=== PATIENT | female | born 1950 | race Caucasian/White ===

== ENCOUNTER → 2021-10-13 08:48 | Outpatient (CLI) | payer MEDICARE, OTHER, SELFPAY ==
--- NOTE | 2021-10-13 | DI.US.S_ITS ---
PROCEDURE: US THYROID INDICATIONS: History of thyroid nodule TECHNIQUE: Real-time scanning was performed of the thyroid gland, with image documentation. COMPARISON: None. FINDINGS: Right: Thyroid lobe measures 3.1 x 1.3 x 0.9 cm, and is homogeneous in echotexture. Left: The atrophic left thyroid lobe measures 1.8 x 0.6 x 0.6 cm. It is homogenous in echotexture. Isthmus: 2 mm thick. Nodule number: 1 Location: Superior/lateral right thyroid lobe Size: 0.8 x 0.7 x 0.6 cm. Composition: Solid Echogenicity: Hypoechoic Shape: wider than tall. Margins: Irregular Echogenic foci: None Total points: 6 ACR TI-RADS category: TI-RADS 4 (moderately suspicious) Nodule number: 2 Location: Inferior/lateral right thyroid lobe Size: 1.3 x 1.1 x 1.0 cm. Composition: Solid Echogenicity: Hyperechoic Shape: wider than tall. Margins: Irregular Echogenic foci: Macrocalcifications Total points: 6 ACR TI-RADS category: TI-RADS 4 (moderately suspicious) IMPRESSION: 1. There are twoTI-RADS 4 (mildly suspicious) thyroid nodules identified in the right thyroid lobe measuring 0.8 cm and 1.3 cm respectively. These do not meet size criteria for FNA at this time. Imaging follow-up as recommended below. Atrophic left thyroid lobe. ACR TI-RADS definitions and recommendations: TI-RADS 1 (benign): 0 points. FNA not needed. TI-RADS 2 (not suspicious): 2 points. FNA not needed. TI-RADS 3 (mildly suspicious): 3 points. * FNA if 2.5 cm or larger, follow up if 1.5 cm or larger (at 1, 3, and 5 years). TI-RADS 4 (moderately suspicious): 4-6 points. * FNA if 1.5 cm or larger, follow up if 1 cm or larger (at 1, 2, 3, and 5 years). TI-RADS 5 (highly suspicious): 7 points or more. * FNA if 1 cm or larger, follow up if 0.5 cm or larger (every year for 5 years). Dictated by: Aquilino Blackwood M.D. on 10/13/2021 at 12:21 Approved by: Aquilino Blackwood M.D. on 10/13/2021 at 12:27
--- NOTE | 2021-10-13 | DI.MG.S_ITS ---
BILATERAL DIGITAL SCREENING MAMMOGRAM 3D/2D WITH CAD: 10/13/2021 CLINICAL: Routine screening. Family history of breast cancer. Comparison is made to exams dated: 11/25/2020 mammogram, 11/25/2020 ultrasound, 07/26/2020 mammogram, 07/01/2019 mammogram, 06/18/2018 mammogram, and 06/11/2017 mammogram - Outside facility. The tissue of both breasts is heterogeneously dense. This may lower the sensitivity of mammography. Current study was also evaluated with a Computer Aided Detection (CAD) system. No significant masses, calcifications, or other findings are seen in either breast. There has been no significant interval change. IMPRESSION: NEGATIVE There is no mammographic evidence of malignancy. A 1 year screening mammogram is recommended. Based on the Tyrer Cuzick model (a risk assessment model) the patient's lifetime risk is 7.6% and her 10 year risk is 4.5%. According to the ACR, ACS, and NCCN guidelines, an annual breast MRI exam along with mammogram is recommended if the patient's lifetime risk is 20% or greater. This exam was interpreted at Station ID: [id number]. NOTE: For mammograms, a report in lay terms will be sent to the patient. Approximately 15% of breast malignancies will not be visualized mammographically. In the management of a palpable breast mass, a negative mammogram must not discourage biopsy of a clinically suspicious lesion. Electronically Signed By: Tiara calderón/velasquez:10/13/2021 15:15:16 letter sent: Normal Exam ACR BI-RADS Category 1: Negative [id number]
== END ==
PROVIDERS: PCP Nurse Practitioner Family; Referring Provider Nurse Practitioner Family; Visit Provider Nurse Practitioner Family
DX: Z12.31 Encounter for screening mammogram for malignant neoplasm of breast (principal); Z80.3 Family history of malignant neoplasm of breast; E04.2 Nontoxic multinodular goiter; Z86.39 Personal history of other endocrine, nutritional and metabolic disease
CPT/HCPCS: 76536; 77063; 77067

== ENCOUNTER → 2021-12-06 11:39 | Outpatient (CLI) | payer MEDICARE, OTHER, SELFPAY ==
--- NOTE | 2021-12-06 11:41 | DI.MRI.S_ITS ---
PROCEDURE: MR KNEE RT WO CON COMPARISON: None. INDICATIONS: Pain in right knee FINDINGS: There is a complex tear involving the root of the posterior horn of the medial meniscus. There is also a horizontal tear involving the body of the patient's medial meniscus extending to the inferior joint surface. Lateral meniscus, PCL, and collateral ligaments appear within normal limits. There is mucinous degeneration of the ACL which is otherwise intact. There is a 2.5 centimeter septated ganglion cyst posterior to the PCL. The extensor mechanism appears within normal limits. There is moderate to severe chondromalacia involving the patellofemoral joint and articular surfaces of the medial compartment. Mild chondromalacia is noted involving the articular surface of the lateral compartment. There are some small subchondral cysts in the region of the tibial spines. There is a small knee joint effusion present. No significant Nelson cyst is identified. IMPRESSION: 1. Complex tear involving the root of the posterior horn of the patient's medial meniscus extending to superior and inferior joint surfaces. 2. Horizontal tear involving the body of the patient's medial meniscus extending to the inferior joint surface. 3. Mucinous degeneration of the ACL. 4. 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 5. Mild chondromalacia articular surfaces of the lateral compartment. 6. 2.5 centimeter septated ganglion cyst posterior to the PCL. 7. Small knee joint effusion. Dictated by: Bruce Copeland M.D. on 12/06/2021 at 13:39 Approved by: Bruce Copeland M.D. on 12/06/2021 at 13:46
== END ==
PROVIDERS: PCP Nurse Practitioner Family; Referring Provider Nurse Practitioner Family; Visit Provider Nurse Practitioner Family
DX: M25.561 Pain in right knee (principal); S83.241A Other tear of medial meniscus, current injury, right knee, initial encounter; M94.261 Chondromalacia, right knee; M67.461 Ganglion, right knee; M25.461 Effusion, right knee
CPT/HCPCS: 73721

== ENCOUNTER → 2022-01-04 12:20 | Outpatient (CLI) | payer MEDICARE, OTHER, SELFPAY ==
--- NOTE | 2022-01-04 12:21 | DI.MRI.S_ITS ---
PROCEDURE: MR LUMBAR SPINE WO CON INDICATIONS: Spinal Stenosis TECHNIQUE: Noncontrast sagittal T1 spin echo and T2 fast echo, sagittal STIR, and T2 fast spin echo through the lumbar spine. In cases with scoliosis, additional coronal T2 fast spin echo may be performed. COMPARISON: None. FINDINGS: Image quality: Excellent. Alignment and Curvature: There is mild grade 1 anterolisthesis seen at the L4-L5 level. No definite associated pars defects are seen. Bone Marrow: Marrow is of normal overall signal. Scattered foci are seen, which are hyperintense on T1-weighted and T2-weighted imaging, which are most consistent with benign vertebral body hemangiomas. No acute vertebral body compression fractures. Spinal Cord: Conus medullaris terminates at the L1 level. Visualized cord demonstrates normal signal and size. Paraspinous Soft Tissues: No paravertebral masses. There is a 4.7 cm simple appearing right renal cyst noted anteriorly. T11-T12: Moderate loss of disc height is seen anteriorly. No significant neural foraminal or central canal narrowing can be seen. T12-L1: Normal appearance. L1-L2: Normal appearance. L2-L3: Normal appearance. L3-L4: The disc height is well-preserved. Loss of disc signal is seen at this level. Mild generalized disc bulge is seen. Mild facet joint hypertrophy is seen. Moderate bilateral neural foraminal narrowing can be seen, right worse than left. Mild central canal narrowing is seen. L4-L5: Moderate loss of disc height is seen. Loss of disc signal is seen. Moderate generalized disc bulge is seen. There is a superimposed central disc protrusion. At least moderate facet hypertrophy is seen. Associated hypertrophy of the ligamentum flavum can be seen. There is moderate to severe bilateral neural foraminal narrowing seen, with an associated a degree of compression seen upon the exiting nerve roots. Moderate to severe central canal narrowing is also seen. L5-S1: The disc height and disk signal are well-preserved. Mild generalized disc bulge is seen. Mild facet joint hypertrophy is seen. Mild bilateral neural foraminal narrowing is seen. No significant central canal narrowing is seen. IMPRESSION: Lower lumbar spine degenerative changes are seen, which are worst at the L4-L5 level, where there is moderate to severe bilateral neural foraminal narrowing and moderate to severe central canal narrowing. At L4-L5, there is grade 1 anterolisthesis seen, without associated pars defects. Dictated by: Andrade Davis M.D. on 01/04/2022 at 15:40 Approved by: Andrade Davis M.D. on 01/04/2022 at 15:43
== END ==
PROVIDERS: PCP Nurse Practitioner Family; Referring Provider Physical Medicine & Rehabilitation; Visit Provider Physical Medicine & Rehabilitation
DX: M43.16 Spondylolisthesis, lumbar region (principal); M47.816 Spondylosis without myelopathy or radiculopathy, lumbar region; M48.061 Spinal stenosis, lumbar region without neurogenic claudication
CPT/HCPCS: 72148

== ENCOUNTER 2022-01-16 12:43 | Outpatient (CLI) | payer MEDICARE, OTHER, SELFPAY ==
[2022-01-16] VITALS (8 sets, daily range): BP systolic 117–134; BP diastolic 75–90; PULSE 64–75; RESP 12–20; TEMP 36.7; O2SAT 96–100
--- NOTE | 2022-01-16 12:44 | DI.RAD.S_ITS ---
PROCEDURE: PAIN L/S TRANSFORAM INJECT LAN COMPARISON: None. INDICATIONS: SPONDYLOSIS FINDINGS: Multiple images demonstrate performance of bilateral L4 nerve root blocks by the interventional pain physician. IMPRESSION: Fluoroscopic imaging utilized during bilateral L4 nerve root block procedure. Dictated by: Keven Jacob M.D. on 01/16/2022 at 20:53 Approved by: Keven Jacob M.D. on 01/16/2022 at 20:54
[2022-01-16] MEDS: MIDAZOLAM 2 MG/2 ML VIAL IV (14:14)
[2022-01-16] MEDS: IOPAMIDOL 15 ML VIAL 3 ML INJ (14:18)
[2022-01-16] MEDS: BETAMETHASONE 30 MG/5 ML MDV 12 MG INJ (14:18)
[2022-01-16] MEDS: BUPIVACAINE 0.25% (PF) VIAL 2 ML INJ (14:18)
[2022-01-16] MEDS: DEXAMETHASONE 10 MG/ML VIAL 20 MG INJ (14:19)
--- NOTE | 2022-01-16 14:29 | PM.PROC.IR.1 ---
Date/Time/Diagnoses Date of procedure: 01/16/22 Time of procedure: 14:30 Pre-procedure diagnosis: 1. FORAMINAL STENOSIS WITH LE SYMPTOMS Procedure Notes Procedure: 1. FLUOROSCOPICALLY GUIDED CONTRAST CONTROLLED TRANSFORAMINAL EPIDURAL STEROID INJECTION - BILATERAL L4/5 TFESI Indications: Nanda is referred by PERRY Sahu for treatment of Foraminal Stenosis with bilateral LE Symptoms Physician: Abdiel Villareal Total Fluoroscopy time (seconds): 12 Total sedation minutes: 14 Complications: none Procedure in detail & Post-procedure care: FINDINGS Foraminal Nerve Root Compression secondary to disc disease and facet hypertrophy DESCRIPTION OF PROCEDURE Following review of allergy and review of potential side effects and complications, including, but not necessarily limited to, infection, allergic reaction, local tissue breakdown, stroke, temporary or permanent nerve injury, paralysis, and possible , the patient indicated that the patient understood and agreed to proceed. An informed consent document was signed by the patient, witnessed by a nurse, and placed in the patient's chart. Additionally, other treatment options including medications, modalities, and physical therapy were reviewed with the patient. After review of previous anaesthesic history and IV conscious sedation the patient was deemed safe to proceed with today?s procedure with IV conscious sedation as ASA class II designation. Safety time-out was performed to confirm patient ID, procedure to be performed and site of procedure. IV sedation was accomplished with a combination of 2mg of Versed was administered by the RN after DO order, titrated to patient comfort during the course of the procedure while the patient remained responsive to all verbal commands In the prone position following sterile prep and drape of the lumbar region, the right L4/5 posterior neuroforamen was identified fluoroscopically. The skin was anesthetized via a 25-gauge 1.5-inch needle with 1% lidocaine solution. At this point, a 25-gauge 3.5-inch spinal needle was atraumatically introduced and advanced under fluoroscopic guidance through the posterior right L4/5 neuroforamen to approximately the anterior aspect of the canal. Depth was confirmed on lateral view. Following negative aspiration, injection of approximately 1.5cc of Isovue 200 under live fluoroscopy in the AP view confirmed excellent flow along the nerve root, into the epidural space without vascular or intrathecal uptake observed Radiological data, including multiple fluoroscopic views of the lumbosacral spine, reveal a spinal needle at the right L4/5 posterior neuroforamen. Subsequent views show flow of contrast material flowing superiorly and inferiorly along the nerve root confirming epidural flow. Subsequently, a test dose of 1.5cc of 1% lidocaine solution was administered and patient was observed for two minutes for signs or symptoms of complications, including abdominal pain, shortness of breath, bilateral upper or lower extremity weakness, nausea and vomiting, prior to steroid injection. At this point, a total of 3cc or 20mg of dexamethasone and 6mg betamethasone was injected without incident. Attention was then refocused to the left L4/5 level where the identical procedure was replicated. The procedure tolerated the procedure well without signs or symptoms of complications prior to transfer to the recovery area continued monitoring without incident. The patient was then transferred to the recovery area where they were observed for an appropriate time after the injection. The patient reported a VAS score of 7 prior to the procedure and a post-procedure VAS of 0. POST OP INSTRUCTIONS The patient was provided a Pain Log to continue to record their response to the target-specific procedure prior to follow-up visit with their referring physician. Additionally, specific post-injection care instructions and a contact number to our office were provided if concerns arise regarding possible complications associated with the procedure are suspected.
--- NOTE | 2022-01-16 14:54 | PC.NURSE ---
Patient had some left leg weakness when stood up from the wheelchair after the procedure. Checked again at 1444, some weakness still persisted. Kept patient for 10 more minutes and rechecked at 1454. Her weakness was much improved. The patient and I both felt she was able to leave. Dr. Villareal notified.
== END 2022-01-16 14:54 | disposition home or self-care (01) ==
LOC: RAD 12:43
PROVIDERS: PCP Nurse Practitioner Family; Referring Provider Physical Medicine & Rehabilitation; Visit Provider Physical Medicine & Rehabilitation
DX: M48.061 Spinal stenosis, lumbar region without neurogenic claudication (principal); M51.16 Intervertebral disc disorders with radiculopathy, lumbar region
CPT/HCPCS: 64483; 99152; J0702; J1100; J2250; J3490

== ENCOUNTER → 2022-04-25 09:22 | Outpatient (CLI) | payer MEDICARE, OTHER, SELFPAY ==
--- NOTE | 2022-04-25 | DI.RAD.S_ITS ---
PROCEDURE: XR DEXA AXIAL SKELETON INDICATIONS: Age-related osteoporosis COMPARISON: None. FINDINGS: This blank DEXA report has been sent in error by the PACS system. The correct and complete report will be forthcoming in 1-2 days. Thank you for your patience and understanding. Dictated by: Drew Fernández M.D. on 04/25/2022 at 11:38 Approved by: Drew Fernández M.D. on 04/25/2022 at 11:38
== END ==
PROVIDERS: PCP Family Medicine; Referring Provider Family Medicine; Visit Provider Family Medicine
DX: Z13.820 Encounter for screening for osteoporosis (principal); M81.0 Age-related osteoporosis without current pathological fracture; Z78.0 Asymptomatic menopausal state
CPT/HCPCS: 77080

== ENCOUNTER 2022-04-25 11:02 | Day surgery (SDC) | payer MEDICARE, OTHER, SELFPAY ==
[2022-04-19 08:39] VITALS: BMI 20.5
[2022-04-25] VITALS (9 sets, daily range): BP systolic 93–145; BP diastolic 60–82; PULSE 69–88; RESP 11–21; TEMP 36.1–36.9; O2SAT 95–98; BMI 19.7; BMI 22.1
--- NOTE | 2022-04-25 06:00 | DI.RAD.S_ITS ---
PROCEDURE: XR KNEE RT 1TO2V INDICATIONS: R TKA TECHNIQUE: Two views of the knee acquired. COMPARISON: [facility], CR, XR KNEE STANDING BILATERAL, 01/04/2022, 8:51. FINDINGS: Bones: Patient is status post knee joint arthroplasty. Hardware components are in expected positions. Visualized bony structures are intact. Soft tissues: Overlying postoperative changes are noted. IMPRESSION: Status post right total knee arthroplasty with expected postoperative findings. Approved by: Ori Donohue M.D. on 04/25/2022 at 15:11
[2022-04-25] MEDS: ACETAMINOPHEN 325 MG TABLET 975 MG PO (11:42)
[2022-04-25] MEDS: MELOXICAM 7.5 MG TABLET 15 MG PO (11:46)
[2022-04-25] MEDS: LACTATED RINGERS 1,000 ML 42 ML IV (12:07)
[2022-04-25] MEDS: MELOXICAM 7.5 MG TABLET PO (12:12)
--- NOTE | 2022-04-25 12:19 | PM.PREOP ---
Pre-operative Note Interval Note History & Physical reviewed/Exam performed by Physician: Yes Changes to H&P: No
[2022-04-25] MEDS: CEFAZOLIN 2 GM/100 ML PREMIX 100 ML IV ×2 (12:50→21:16)
[2022-04-25] MEDS: TRANEXAMIC ACID 1,000 MG VIAL 1000 MG INJ ×2 (13:02→13:58)
--- NOTE | 2022-04-25 13:08 | SUR.OPER ---
Supine on padded OR bed, head on pillow, arms secured on padded arm boards at <90 degrees abduction, legs uncrossed, safety belt at abdomen, tape over blanket over lower left leg. Alavardo padded and holding left leg, secured with coban.
[2022-04-25] MEDS: BUPIVACAINE LIPOSOME 266 MG/20 ML VIAL INJ (13:21)
[2022-04-25] MEDS: MORPHINE 4 MG/ML INJ INJ (13:21)
[2022-04-25] MEDS: BUPIVACAINE 0.5% W/ EPI (PF) 30 ML VIAL INJ (13:23)
--- NOTE | 2022-04-25 14:21 | PM.OP.1 ---
Operative Date/Time/Diagnoses Date of procedure: 04/25/22 Time of procedure: 14:21 Pre-op diagnosis: Right knee osteoarthritis Post-op diagnosis: same Procedure & Clinicians Procedure: Right total knee replacement Same procedure as scheduled: Yes Indications: The patient has had progressively worsening right knee pain with radiographic changes consistent with arthritis. Non-operative management has failed and the patient has requested total knee replacement. The risks, benefits and alternatives to surgery were discussed with the patient prior to proceeding. Risks discussed included, but were not limited to, failure to relieve pain, stiffness, infection, nerve damage, deep venous thrombosis, pulmonary embolism, stroke, coma, heart attack, permanent paralysis and , as well as the potential need for eventual revision of the prosthetic. Surgeon: José Toney Substance Abuse Clinician: Navneet Phipps Click Yes if Unassisted: No Anesthesia Type: General, Spinal and Local Operative Notes Findings: Severe patellofemoral and moderate medial osteoarthritis. Closure Type: primary Specimen(s): none sent Prosthetic devices, grafts, tissues, transplants, or devices: Implants used in this procedure were manufactured by the [employer] and [employer] and included the BCS II Journey total knee replacement with a size 5 right Oxinium femoral component, a size 4 right non porous tibial base plate, a 9 mm cross-linked polyethylene tibial insert, and a 32 mm oval Cherie II patella. Applied: implant(s) Estimated Blood Loss (mL): 25 Blood products transfused: none Tourniquet time (min): 51 Procedure in detail: The patient was seen in the pre-operative area, where the patient identified the right knee as the operative site and this was marked with my initials. The patient received pre-operative antibiotics, and was taken to the operating room and placed on the operative table in the supine position. After satisfactory anesthesia, a radio time buyer out was performed. The right leg was encircled with a tourniquet about the proximal thigh, and the leg was prepared from the toes to the tourniquet with ChloroPrep in the usual fashion and draped through sterile drapes. The leg was elevated and exsanguinated with Eschmark bandage and the tourniquet inflated to 250 mmHg pressure. The knee was approached through an approximately 18 cm incision centered over the patella and carried into the knee through a medial parapatellar arthrotomy. The anterior osteophytes and soft tissues were removed. The rotational landmarks of Annemarie's line and the transepicondylar axis were marked on the femur with electrocautery, and intramedullary guide holes for the femur and tibia were created. The distal femoral cut was made in 6 degrees of valgus using the intramedullary guide at the primary cut setting. The proximal tibial cut was then made using the intramedullary guide, taking 9 mm of bone off the less involved side. The extension gap was checked and the rotation of the femoral component confirmed with the gap balancing system. The anterior, posterior and chamfer cuts were then made. The posterior osteophytes and soft tissues were then removed. The posterior capsule was injected with part of a mixture of 60 ml 0.25% Marcaine mixed with 20 ml Exparel and 4 mg of morphine for post-operative pain control. The remainder of this mixture was injected into the capsule and subcutaneous tissues during cement curing. The tibia was prepared with the rotation set by an extra medullary guide. Trial tibial and femoral components were then placed and the intercondylar notch cut through the femoral trial. Range of motion was 0-145 degrees, with good stability throughout the range. The patella was then cut to accommodate the patellar prosthetic. There was no need for a lateral release. The trials were then removed, and the femoral hole plugged with a bone plug. The bone was prepared with pulsatile lavage, and dried with a sponge. Cement was applied and the final prosthetics placed. Excess cement was removed during and after cement curing. After confirming there was no extruded cement posteriorly, the final tibial insert was placed. The knee was copiously irrigated and the tourniquet deflated. Hemostasis was obtained. The capsule was closed with interrupted # 2 polyester suture. The subcutaneous layer was closed with 3-0 Vicryl, and the skin with a running 3-0 V-Lock suture and Dermabond. An Aquacel Ag dressing was applied and the patient was taken to recovery having tolerated the procedure well. The services of a skilled neurosurgical nurse practitioner were required during this case to provide exposure, positioning, and retraction to protect vital structures. Without the services of Mr. Phipps, the surgery could not have been performed in a safe, expedient fashion. Complications: none Post-operative Condition: stable Disposition: PACU Plan for aftercare: The patient will be maintained on a standard total knee replacement protocol with weight bearing as tolerated. The patient will receive aspirin and sequential compression devices for DVT prophylaxis. The patient will be discharged home when safe for the home environment.
[2022-04-25] MEDS: LACTATED RINGERS 1,000 ML 100 ML IV (15:36)
[2022-04-25] MEDS: IBUPROFEN 400 MG TABLET PO ×2 (16:35→21:15)
[2022-04-25] MEDS: ACETAMINOPHEN 325 MG TABLET 650 MG PO (17:20)
[2022-04-25] MEDS: OXYCODONE IR 5 MG TABLET PO (18:26)
[2022-04-25] MEDS: FAMOTIDINE 20 MG TABLET 40 MG PO (21:15)
[2022-04-25] MEDS: ASPIRIN EC 81 MG TABLET PO (21:15)
[2022-04-25] MEDS: DOCUSATE 100 MG CAPSULE PO (21:15)
[2022-04-26] MEDS: MELATONIN 3 MG TABLET PO (00:01)
[2022-04-26] MEDS: ACETAMINOPHEN 325 MG TABLET 650 MG PO ×3 (00:01→11:08)
[2022-04-26 00:20] VITALS: BP 118/71; PULSE 70; RESP 18; TEMP 36.7; O2SAT 95
[2022-04-26] MEDS: IBUPROFEN 400 MG TABLET PO ×3 (02:33→12:00)
[2022-04-26] MEDS: LACTATED RINGERS 1,000 ML 100 ML IV (02:47)
[2022-04-26] MEDS: CEFAZOLIN 2 GM/100 ML PREMIX 100 ML IV (05:02)
[2022-04-26] MEDS: LEVOTHYROXINE 88 MCG TABLET PO (05:07)
[2022-04-26 05:09] VITALS: BP 104/60; PULSE 66; RESP 18; TEMP 36.6; O2SAT 95
[2022-04-26 06:26] LABS: Hematocrit 35.6 % (36-46); Hemoglobin 12.2 g/dL (12.0-16.0)
[2022-04-26] MEDS: SODIUM CHLORIDE 0.9% FLUSH 10 ML IV ×2 (06:29→09:12)
[2022-04-26 07:50] VITALS: BP 107/67; PULSE 76; RESP 16; TEMP 36.8; O2SAT 98
--- NOTE | 2022-04-26 07:50 | P.DS_ITS ---
History of Present Illness History of Present Illness Date Patient Seen: 04/26/22 Time Patient Seen: 07:50 Chief complaint: right tka Narrative: Patient is complaining of [id number] right knee pain this morning. Her main complaint is that her right foot is feeling somewhat numb and she has difficulty with dorsiflexion. She feels this is resolving since last night. This is a new experienced since surgery. She also notes she had mild lightheadedness with getting up to the commode, this has resolved. Overall she is doing well and would like to be discharged home today. Discharge Providers Provider Discharge Date: 04/26/22 Primary care physician: Geovanna Mendoza MD Consults: 04/25/22 14:52 Consult to Discharge Planning Routine Comment: Consult to Physical Therapy Evaluate & Treat Comment: Physician Instructions: postop TKA protocol Discharge provider: Dora Holly PA-C Summary Hospital Course Discharge Diagnosis: -right knee osteoarthritis Hospital Course: Operative Date/Time/Diagnoses Date of procedure: 04/25/22 Time of procedure: 14:21 Procedure & Clinicians Procedure: Right total knee replacement Same procedure as scheduled: Yes Indications: The patient has had progressively worsening right knee pain with radiographic changes consistent with arthritis. Non-operative management has failed and the patient has requested total knee replacement. The risks, benefits and alternatives to surgery were discussed with the patient prior to proceeding. Risks discussed included, but were not limited to, failure to relieve pain, stiffness, infection, nerve damage, deep venous thrombosis, pulmonary embolism, stroke, coma, heart attack, permanent paralysis and , as well as the potential need for eventual revision of the prosthetic. Surgeon: José Toney Bodily Injury Adjuster: Navneet Phipps Click Yes if Unassisted: No Anesthesia Type: General, Spinal and Local Operative Notes Findings: Severe patellofemoral and moderate medial osteoarthritis. Closure Type: primary Specimen(s): none sent Prosthetic devices, grafts, tissues, transplants, or devices: Implants used in this procedure were manufactured by the [employer] and included the BCS II Journey total knee replacement with a size 5 right Oxinium femoral component, a size 4 right non porous tibial base plate, a 9 mm cross-linked polyethylene tibial insert, and a 32 mm oval Cherie II patella. Applied: implant(s) Estimated Blood Loss (mL): 25 Blood products transfused: none Tourniquet time (min): 51 Status at Discharge Cognitive/behavioral status at discharge: at baseline, oriented Functional status at discharge: uses cane/walker Overall status at discharge: patient is progressing back to baseline Exam Vital Signs (past 8 hours): - 04/26/22 00:20 04/26/22 05:09 Temperature 98.0 F 97.8 F Pulse Rate 70 66 Respiratory Rate 18 18 Blood Pressure 118/71 104/60 Pulse Oximetry 95 95 Oxygen Flow Rate 0 0 Oxygen Delivery Method Room Air Oxygen Flow Rate 0 Narrative Exam Narrative: Pleasant 72-year-old female, resting comfortably in bed, no acute distress. Right knee dressings are clean, dry, intact. Sensation is mildly decreased over the 5th metatarsal, right worse than left. EHL strength and dorsiflexion are 4/ 5, plantar flexion is 5/5. Bilateral calves are soft and nontender to palpation. Objective Labs 04/26/22 05:36 Labs: Laboratory Results - last 24 hr 04/26/22 05:36 Hgb 12.2 Hct 35.6 L PFSH Medical History ACL (anterior cruciate ligament) tear Arthritis Bilateral lumbar radiculopathy GERD (gastroesophageal reflux disease) Mary Lou's disease HLD (hyperlipidemia) Hypothyroidism IBS (irritable bowel syndrome) Osteoarthritis Osteoporosis Right knee DJD Sciatica Scoliosis Spinal stenosis Spondylolisthesis at L4-L5 level Surgical History Hx of blepharoplasty Hx of tonsillectomy S/P Mohs surgery for basal cell carcinoma Family History Father Diabetes mellitus Hypertension Cancer Mother Hypertension Hyperlipidemia Stroke Osteoporosis Sister Cancer Hyperlipidemia Arthritis Social History household members: spouse Smoking Status: Never smoker alcohol intake: current Discharge Assessment & Plan Assessment and Plan Assessment: -stable status post right total knee arthroplasty -mild right lower extremity dyskinesias, improving Plan of Treatment: -mobilize with physical therapy. Weightbearing as tolerated with front wheel walker -continue with multimodal pain management Aspirin 81 mg b.i.d. x6 weeks for DVT prophylaxis -continue to monitor right lower extremity mild weakness and dyskinesias -patient already has prescriptions and [id number] medications at home -DC home today once cleared by PT Patient will need a priority [place] pass for [place]. Discharge Plan Discharge Plan Patient Disposition: Home Discharge orders & Medications Discharge Orders: Discharge (Order); Ordered 04/26/22 Ordered By: Dora Holly Prescriptions: New oxycodone 5 mg Tablet 5 mg PO Q3HR PRN (Reason: Pain, Moderate (4-6)) Qty: 40 0RF aspirin 81 mg Tablet,Delayed Release (Dr/Ec) 81 mg PO BID 42 Days Qty: 84 0RF Rx Instructions: Prevent blood clots ibuprofen 400 mg Tablet 400 mg PO Q4HR MDD Max 2400 mg per day PRN (Reason: Pain/inflammation) Qty: 90 0RF acetaminophen 500 mg capsule 500 mg PO Q4H MDD Max 3000 mg per day PRN (Reason: fever or pain) Qty: 90 0RF docusate sodium 100 mg Capsule 100 mg PO BID PRN (Reason: constipation) Qty: 20 0RF Continued famotidine 40 mg Tablet 40 mg PO BEDTIME hyoscyamine sulfate 0.125 mg Tablet 0.125 mg PO Q4H PRN (Reason: IBS) melatonin 3 mg Capsule 3 mg PO BEDTIME PRN (Reason: Sleep) levothyroxine 88 mcg tablet 88 mcg PO DAILY estradiol 0.01 % (0.1 mg/gram) cream 1 appful vaginal WEEKLY rosuvastatin 20 mg tablet 20 mg PO DAILY Prolia 60 mg/mL syringe 60 mg SUBCUT [id number] Alive Calcium-Vitamin D3 260 mg calcium- 25 mcg-50 mg tablet,chewable 1 tab PO DAILY Probiotic 15 billion cell capsule, sprinkle 1 cap PO DAILY Rx Instructions: do not crush/chew/cut; swallow whole OR may open and sprinkle in cold drink/food multivitamin Tablet 1 tab PO DAILY gabapentin 300 mg capsule 300 mg PO .COMPLEX Qty: 90 2RF Rx Instructions: 1-2 PO Tid to begin at HS and titrate to pain relief Discontinued ibuprofen 200 mg Tablet 200 mg PO Q6H PRN (Reason: Pain) Follow up/Referrals: Geovanna Mendoza MD [Primary Care Provider] - José Toney MD [Physician] - As previously scheduled (Follow up w/ Navneet Phipps PA-C, on 05/09/2022 @ 2:20 pm at [facility] office in [place].) Diet/Activity/Treatments Diet: Diet as Tolerated Activity: Walk frequently! Cold/Heat Therapy: Ice to knee as needed for pain. Other treatments: Medications: -Aspirin 81mg twice daily x6 weeks to prevent blood clots. -OTC Tylenol 500 mg 1 tablet every 4 hours as needed for pain/fever. Max 6 tablets per day. -Ibuprofen 400 mg 1 tablet every 4 hours as needed for pain/inflammation. Max 2 ,400 mg per day. -Oxycodone 5 mg take 1-2 tablets every 4 hours as needed for moderate-severe pain (narcotic pain medication). -As needed medications: -Ducolax and /or MiraLax as needed for constipation from narcotic pain medications. -Pepcid AC as needed for stomach upset (usually from aspirin or ibuprofen). Dressing/Wound care: -Remove the Redd wrap 48 hours after surgery. -Keep Aquacell dressing in place until postoperative follow-up office visit. -Okay to shower. Keep wound out of direct water stream. No soaking or submerging until all the scabs fall off (approximately 4-6 weeks). -No lotions, ointments, or scar creams directly to the incision until the wound is healed (4-6 weeks). No soaking or submerging until all the scabs are gone (usually 4-6 weeks). -Bruising is relatively normal and can show up 1-10 days after surgery, and can travel down to your foot or ankle. This is expected after surgery, but can be painful. -Please call the office if dressing becomes wet, soiled, or saturated. Activities: -Weight-bearing as tolerated. Use front wheeled walker, and progress to cane when safe. -Continue with home exercises as directed by your physical therapist. -Elevate ?toes above the nose if you have significant swelling in your lower leg. (A wedge pillow is easiest.) -Ice your incision as needed for pain/inflammation/swelling. Protect your skin with a folded pillowcase. -Incentive Spirometer (breathing device from [facility]): 5-10xs every hour while awake for the first 1-2 weeks. Follow-up: -Follow-up with your surgeon or PA in the office in 10-14 days after surgery. -Follow-up with your surgeon 6 weeks postoperatively. Call the office if you have chest pain, shortness of breath, significant swelling that will not resolve with elevating, fever over 101?, significantly worsening pain, or are concerned you might need to go to the Emergency Room. [facility]: [phone] Skin/Wound/Dressing Care Report to your healthcare provider any signs of infection, such as:: chills, fever, night sweats, unusual drainage and unusual redness Dressing: May remove REDD wrap and shower on 04/28/2022. Leave Aquacel dressing in place until follow up in office. No bathing or otherwise soaking incision. Call the office if the dressing becomes saturated inside. Visit Report/Discharge Packet Instructions: DI for Knee Replacement Stand Alone Forms: Patient Portal/API, Stroke Signs & Symptoms, Surgery Discharge Discharge Data Primary Care Provider: Geovanna Mendoza Attending Provider: José Toney Quality VTE Deep Vein Thrombosis/Pulmonary Embolism Present on Admission: No
[2022-04-26] MEDS: ASPIRIN EC 81 MG TABLET PO (09:10)
[2022-04-26] MEDS: MULTIVITAMIN 1 TABLET 1 TAB PO (09:10)
[2022-04-26] MEDS: OXYCODONE IR 5 MG TABLET PO ×2 (09:10→12:50)
[2022-04-26] MEDS: DOCUSATE 100 MG CAPSULE PO (09:10)
[2022-04-26] MEDS: ATORVASTATIN 20 MG TABLET 40 MG PO (09:10)
--- NOTE | 2022-04-26 09:28 | PT.IIE ---
Current Diagnoses Unilateral primary osteoarthritis, right knee (04/25/22) Surgery Performed Operation Date: 04/25/22 13:15 Actual Procedures p Total Knee Arthroplasty(Right) - José Toney MD Surgical History (Last Reviewed 04/26/22 @ 07:52 by Dora Holly PA-C) Hx of blepharoplasty Hx of tonsillectomy S/P Mohs surgery for basal cell carcinoma Medical History (Last Reviewed 04/26/22 @ 07:52 by Dora Holly PA-C) ACL (anterior cruciate ligament) tear Arthritis Bilateral lumbar radiculopathy GERD (gastroesophageal reflux disease) Mary Lou's disease HLD (hyperlipidemia) Hypothyroidism IBS (irritable bowel syndrome) Osteoarthritis Osteoporosis Right knee DJD Sciatica Scoliosis Spinal stenosis Spondylolisthesis at L4-L5 level Physical Therapy Inpatient Evaluation/Re-Eval M1 PT/OT-IP Prior Functional Status Start: 04/26/22 13:19 Freq: NEEDED Status: Active Protocol: Document 04/26/22 09:28 AB (Rec: 04/26/22 13:30 [email or web address] Medical Review Prior Functional Status Medical History Reviewed Yes Communication able to make needs known Mobility and Gait pt stated that she is independent with all mobilities and ambulation without AD Social History Household Members spouse Living Arrangements House Number of Floors (Floors) 3 or More Floors Number of Stairs To Enter/Railing? 5 steps down to enter the house with R rail descending has 8+10 steps with L rail to get to bedroom level Home Environment High Toilet,Walk in Shower Home Equipment Front Wheel Walker,Straight Cane Additional Social History Comment pt's spouse Bill will be able to assist pt at home M2 PT-IP Current Condition Start: 04/26/22 13:19 Freq: NEEDED Status: Active Protocol: Document 04/26/22 09:28 AB (Rec: 04/26/22 13:30 AB [id number]) Physical Therapy Current Condition Current Condition Evaluation Date 04/26/22 Treatment Diagnosis s/p R TKA; difficulty in walking Onset Date 04/25/22 M3 PT-IP Subjective Start: 04/26/22 13:19 Freq: NEEDED Status: Active Protocol: Document 04/26/22 09:28 AB (Rec: 04/26/22 13:30 AB [id number]) Subjective Physical Therapy Visit Type Type Initial Evaluation Visit Start Time 09:28 Visit Stop Time 10:26 Total Visit Minutes 58 Number of CYCLE TOURING GUIDE Visits 0 Physical Therapy Visit Comments Patient Comments agreeable to do PT Therapy Pain Assessment Pain When Pain Assessed At Rest Pain Present Pain Present Pain Reported Location R knee Intensity 5 Scale Used Numeric (0 - 10) Pain Management Techniques Apply Cold,Modification of Treatment,Re-positioning, Timing of Activity with Medications M4 PT-IP Mobility and Gait Start: 04/26/22 13:19 Freq: NEEDED Status: Active Protocol: Document 04/26/22 09:28 AB (Rec: 04/26/22 13:30 AB [id number]) PT-Bed Mobility Assessment Supine to Sit Supine to Sit Standby Assistance Sit to Supine Sit to Supine Standby Assistance PT-Transfer Assessment Sit to and From Stand Sit to and from Stand Standby Assistance,Contact Guard Assistance,1 Person Assistance,Use of Upper Extremities Equipment Transfer Assistive Device Gait Belt,Front Wheeled Walker Orthotic/Prosthetic Devices or Brace: No Transfers Transfer Destination Bed,Chair Transfer Technique Stand Step Pivot Transfer Ability Level of Assist Standby Assistance,Contact Guard Assistance,1 Person Assistance,Use of Upper Extremities Comments Mobility Comments pt completed sit to stand from the chair CGA and cues and step transfer to bed using fWW CGA. pt completed sit<>supine SBA. caregiver training conducted. educated spouse on use of safety belt and how to assist pt. spouse was able to put safety belt on pt and assisted pt with sit to stand CGA and ambulated pt using fWW SBA to CGA. ~ 100 [address] in [address] hallway. educated pt and spouse regarding stair climbing technique using L rail and SPC . pt completed up/down steps with spouse assisting with L rail and SPC CGA. repeated x 2 sets. assisted pt back to her room. sit to stand from w/c SBA and ambulated to the chair using FWW SBA. positioned pt on the chair. call light and table placed within reach. pt and spouse have several questions regarding positioning and exercises and questions addressed. pt and spouse without further concerns. Gait Assessment Gait Gait Assistance Required: Standby Assistance,Contact Guard Assist Distance (Feet) 100 Able to Maintain Weight Bearing Status Yes During Gait Assistive Devices Assistive Device Gait Belt,Front Wheeled Walker Orthotic/Prosthetic Devices or Brace: No Gait Deviations General Gait Pattern Antalgic,Decreased Stride Length,Decreased Feet Clearance Factors Limiting Gait Function Factors Limiting Gait Function Decreased Activity Tolerance, Decreased Strength,Limited Range of Motion,Pain,Poor Balance Stair Climbing Assessment Evaluation Level of Assist On Stairs Contact Guard Assistance,1 Person Assistance Devices Stair Climbing Assistive Devices Straight Cane Technique/Endurance Stair Climbing Direction Ascend and Descend Stair Climbing Technique Step to Step Number of Steps Climbed 3 Query Text: Stair Climbing Set # Repetitions (reps) 2 PT-Balance Assessment Sitting Balance and Reactions Static Sitting Balance Ability Normal Dynamic Sitting Balance Ability Normal Standing Balance and Reactions Static Standing Balance Ability Good Dynamic Standing Balance Ability Fair Device Used FWW M5 PT-IP Objective Assessments Start: 04/26/22 13:19 Freq: NEEDED Status: Active Protocol: Document 04/26/22 09:28 AB (Rec: 04/26/22 13:30 AB [id number]) Orientation Orientation/Cognition Level of Alertness Alert Orientation Name,Place,Situation Language Function Ability No Deficits Noted Safety Awareness Understands Safety Issues Memory Description No Deficits Noted Gross Range of Motion Lower Extremity ROM Assessment Right Impaired Impairments R knee flexion: ~ 50 deg Strength Lower Extremity Strength Assessment Right Impaired Hip 3+/5 Knee 3+/5 Coordination Assessment Gross Coordination Gross Coordination WNL Sensation Assessment Sensation Gross Sensation WNL Muscle Tone Muscle Tone WNL Yes M6 PT-IP Treatment Start: 04/26/22 13:19 Freq: NEEDED Status: Active Protocol: Document 04/26/22 09:28 AB (Rec: 04/26/22 13:30 AB [id number]) Physical Therapy Treatment Education Education Provided Precautions,Weight Bearing Status,Post-Op Packet,Safety M7 PT-IP Assessment and Plan Start: 04/26/22 13:19 Freq: NEEDED Status: Active Protocol: Document 04/26/22 09:28 AB (Rec: 04/26/22 13:30 AB [id number]) PT Summary Assessment and Plan Potential Rehabilitation Potential Good Status of Condition at Evaluation Stable Summary Impairments Pain,ROM,Strength,Balance, Coordination,Sensation,Tone, Cognition,Bed Mobility, Transfers,Gait,Activity Tolerance Assessment Summary pt requiring SBA to CGA with mobility and caregiver training completed. spouse was able to assist pt safely and pt may go home when medically stable. Goals Bed Mobility Goal Independent Transfer Goal Independent,Front Wheeled Walker Gait Goal Independent,Front Wheel Walker Gait Distance 250 Other Goals up/down 8+10 steps L rail + SPC mod I Days to Meet Goals 5 Frequency of Treatment Frequency Of Treatment Twice a Day Treatment Plan Physical Therapy Treatment Plan Bed Mobility Training,Transfer Training,Gait Training, Therapeutic Exercise,Balance Retraining,Post Op Education, Discharge Planning,Hot or Cold Pack,Neuromuscular Re-ed, Coordination Retraining,Manual Therapy Weight Bearing Status Weight Bearing Status Weight Bear as Tolerated Allowed Weight Bearing Amount (enter % RLE WBAT or #) (%) Recommendations To Nursing Amount of Assist Needed 1 Person Assist Discharge Recommendations PT Discharge Recommendations Home with Assistance, Outpatient PT Transportation Needs at Discharge Private Vehicle
[2022-04-26 11:23] VITALS: BP 113/74; PULSE 77; RESP 16; TEMP 36.9; O2SAT 98
--- NOTE | 2022-04-26 11:32 | CM.DANOTE ---
DCP: Assessment: 72 yo female who admitted on 04/25/2022 via pov in care of orthopedic team, underwent preplanned Right Total Knee Arthroplasty has history of patellofemoral and moderate medial osteoarthritis of right knee. PCP: Geovanna Mendoza Insurance: Medicare; [facility] This CM met with patient in her room with her present. She is A+Ox4. This CM introduced self and role. Pt confirms that she resides on [address] with her , she drives at baseline and she did not use DME prior to surgery. Plan: D/C home with when medically stable. Pt is set up to attend outpatient therapy at [place] [facility]. Kierra Canas RN Case Manager Discharge Planning/Care Management CM Discharge Assessment Start: 04/26/22 11:29 Freq: Status: Active Protocol: Document 04/26/22 11:29 JS (Rec: 04/26/22 11:31 [id number]) Discharge Planning Assessment Assigned Wreath Machine Operator Kierra Canas RN Case Manager Advance Directives? Yes: [facility] Advance Directives on File No History Provided By Patient,Medical Record Has Patient been admitted in last 30 No days? Prior Living Arrangements House Household Members spouse Type of transporation used prior to Drives own vehicle admit Independent with ADL's Yes Is patient alert and oriented? Yes Barriers to Discharge No Discharge Plan Home Community Services Physical Therapy Transportation Arrangement will drive Referrals Initiated None needed Additional Comment Pt is set up to go home with with outpatient physical therapy Whiteboard Updated in Patient Room with Yes name and ext. # of Wreath Machine Operator Review Status In Process Next Review Type Continued Stay Review Pre-Anesthesia Assessment Start: 04/19/22 08:39 Freq: Status: Complete Protocol: Document 04/19/22 08:39 [facility] (Rec: 04/19/22 09:30 [facility] [id number]) Pre-Anesthesia Assessment Patient Information Reviewed Via Phone Assessment Assessment Completed With Patient Diagnostic Results BMP/CMP,CBC,EKG Comment Outside labs/EKG scanned, COVID screen @ [place] 04/23/22 Primary Care Provider Geovanna Mendoza Seen Specialist in Last 12 Months Yes Specialist Seen Litigation Attorney,Orthopedist, Other Comment Pain specialist Primary Language [employer] [employer] Required No Height 162.56 cm Weight 54.431 kg Body Mass Index (BMI) 20.5 Hearing Ability Normal Visual Assist Glasses Dentition Type Teeth, Natural Present Barriers to Learning None Other Aids No Hx Anesthesia Reactions No Hx Family Anesthesia Reaction No Hx Malignant Hyperthermia No Hx Blood Transfusions No Anesthesia Review Requested No alcohol intake current alcohol intake frequency a few times a week Smoking Status Never smoker Substance Use Type marijuana Comment Occasional edibles Pain Present Pain Reported Musculoskeletal Symptoms Abnormal Gait,Back Pain, Difficulty Walking,Joint Pain History of Falling (Recent or History of No ) Patient is completely paralyzed or No completely immobile Mental Status Oriented to own ability Is patient on oxygen? No Does patient have SMITH/SOB No Hx Sleep Apnea No Currently Taking a Beta Prema No Can You Climb a Flight of Stairs Without Yes SOB Hx Chest Pain No Hx SOB No Hx Syncope or Dizziness No Anti-Coagulant Therapy No Has a Emergency Medicine Specialist No Cardiac Testing No Hx Pacemaker/ICD No Pacemaker Rep Required? No Cardiac Clearance Received No Diet Type At Home Regular Dysphagia No Gastrointestinal Symptoms Constipation,Diarrhea,Reflux Chronic UTI No Urinary Catheter Present No Hx Urinary Self Catheterization No Diabetes No Patient No Lactating No Hx Drug Resistant Organism No Presence of External or Internal Medical No Devices Have you had any close contact with No someone diagnosed with COVID-19? Received a COVID vaccine? Yes Received all doses? Yes Marital Status Lives With spouse Current Living Arrangements House Number of Floors (Floors) 3 or More Floors Support System Spouse Does the Patient Have Assistance After Yes Surgery Patient Discharge Plan Description Return Home Comment Pt advised overnight length of stay per surgeon Additional comment Lives [place] Feels Safe in Current Environment Yes Been Physically Hurt or Threatened By a No Person in Current Environment Do you have thoughts of harming yourself None or others? Are you currently considering suicide? No Do you have a plan to hurt yourself or No Plan others? Do You Have Any Spiritual Beliefs That No May Affect Your HC Choices? Do You Have Any Cultural Practices That No May Affect Your HC Choices? Who Can We Speak to About Patient's Care Family, friends Identifying Code for Release of Patient Declines to issue Information Health Care Proxy/Next of Kin Tami () Health Care Proxy Emergency Contact Name Tami () Emergency Contact Advance Directives? Yes: [facility] Advance Directives on File No Power of Clerk Specialist Yes Power of Clerk Specialist Name Tami () Power of Clerk Specialist PAC Instructions Do not shave/clip surgical site,Durable medical equipment ,Medications to take/avoid, Nasal antibiotic,No ETOH/ petroleum product on skin DOS, NPO,Post-op transportation,Pre -surgical wash,Sensory aids, Sturdy shoes/comfortable clothes,Do not bring valuables and remove jewelry
== END 2022-04-26 13:12 | disposition home or self-care (01) ==
LOC: OR 11:09 → AC 13:09
PROVIDERS: PCP Family Medicine; Referring Provider Orthopaedic Surgery; Visit Provider Orthopaedic Surgery
PROC: 0SRC0JZ Replacement of Right Knee Joint with Synthetic Substitute, Open Approach (ICD-10-PCS; CPT 27447; principal; 2022-04-25 13:15)
DX: M17.11 Unilateral primary osteoarthritis, right knee (principal); Z13.820 Encounter for screening for osteoporosis; Z78.0 Asymptomatic menopausal state; M81.0 Age-related osteoporosis without current pathological fracture
CPT/HCPCS: 27447; 36415; 73560; 77080; 85014; 85018; 97161; 97530; C1776; A9270; C1713; C9290; J0690; J1100; J2250; J2270; J2405; J2704; J3010

== ENCOUNTER → 2022-10-27 11:15 | Outpatient (CLI) | payer MEDICARE, OTHER, SELFPAY ==
[2022-04-25 14:51] VITALS: BMI 22.1
--- NOTE | 2022-10-27 | DI.MG.S_ITS ---
BILATERAL DIGITAL SCREENING MAMMOGRAM 3D/2D WITH CAD: 10/27/2022 CLINICAL: Routine screening. Family history of breast cancer. Comparison is made to exams dated: 10/13/2021 mammogram - [facility], 11/25/2020 mammogram, 07/26/2020 mammogram, and 07/01/2019 mammogram - Outside facility. Both breasts are heterogeneously dense, which may obscure small masses (category c / 51-75% glandular tissue). Current study was also evaluated with a Computer Aided Detection (CAD) system. There is a possible developing 0.5 cm asymmetry in the right breast middle depth lateral region seen on the craniocaudal view only. No other significant masses, calcifications, or other findings are seen in either breast. IMPRESSION: INCOMPLETE: NEEDS ADDITIONAL IMAGING EVALUATION The possible developing 0.5 cm asymmetry in the right breast is indeterminate. Additional views with possible ultrasound are recommended. Based on the Tyrer Cuzick model (a risk assessment model) the patient's lifetime risk is 7.2% and her 10 year risk is 4.5%. According to the ACR, ACS, and NCCN guidelines, an annual breast MRI exam along with mammogram is recommended if the patient's lifetime risk is 20% or greater. This exam was interpreted at Station ID: [id number]. NOTE: For mammograms, a report in lay terms will be sent to the patient. Approximately 15% of breast malignancies will not be visualized mammographically. In the management of a palpable breast mass, a negative mammogram must not discourage biopsy of a clinically suspicious lesion. Electronically Signed By: Chapito Mcfarland M.D. [facility]/:10/29/2022 08:32:29 letter sent: Additional Imaging Needed ACR BI-RADS Category 0: Incomplete 3340F
== END ==
PROVIDERS: PCP Family Medicine; Referring Provider Family Medicine; Visit Provider Family Medicine
DX: Z12.31 Encounter for screening mammogram for malignant neoplasm of breast (principal); Z80.3 Family history of malignant neoplasm of breast
CPT/HCPCS: 77063; 77067

== ENCOUNTER → 2022-11-06 13:02 | Outpatient (CLI) | payer MEDICARE, OTHER, SELFPAY ==
[2022-04-25 14:51] VITALS: BMI 22.1
--- NOTE | 2022-11-06 | DI.MG.S_ITS ---
UNILATERAL RIGHT DIGITAL DIAGNOSTIC MAMMOGRAM 3D/2D WITH ADDITIONAL VIEWS: 11/06/2022 CLINICAL: Additional evaluation requested from prior study. Comparison is made to exams dated: 10/27/2022 mammogram, 10/13/2021 mammogram - [facility], and 11/25/2020 mammogram - Outside facility. The right breast is heterogeneously dense, which may obscure small masses (category c / 51-75% glandular tissue). There is a possible developing asymmetry in the right breast middle depth lateral region seen on the craniocaudal view only. This is not seen in additional views. No other significant masses or calcifications are seen in the breast. IMPRESSION: NEGATIVE There is no mammographic evidence of malignancy. The possible asymmetry in the right breast is consistent with fibroglandular tissue and is benign. A 1 year screening mammogram is recommended. Exam findings were conveyed to the patient. Based on the Tyrer Cuzick model (a risk assessment model) the patient's lifetime risk is 7.2% and her 10 year risk is 4.5%. According to the ACR, ACS, and NCCN guidelines, an annual breast MRI exam along with mammogram is recommended if the patient's lifetime risk is 20% or greater. This exam was interpreted at Station ID: [id number]. NOTE: For mammograms, a report in lay terms will be sent to the patient. Approximately 15% of breast malignancies will not be visualized mammographically. In the management of a palpable breast mass, a negative mammogram must not discourage biopsy of a clinically suspicious lesion. Electronically Signed By: Chapito Mcfarland M.D. [facility]/:11/06/2022 14:27:00 letter sent: Normal Exam ACR BI-RADS Category 1: Negative [id number]
--- OUTSIDE RECORDS SUMMARY | 2023-02-22 14:37 | XMS_ITS | Referral Summary ---
Author Name Unknown Organization [facility] Address [address] [place] [address] Care Team Providers Care Director Digital Communications Name Role Phone Geovanna Mendoza MD Primary Care Provider [phone] José Toney MD Unavailable [phone] Reason for Referral * Specialty Visit (Routine) - In Process Specialty Diagnoses / Procedures Referred By Alexi bridges Referred To Contact Diagnoses History of basal cell carcinoma (BCC) History of Mohs micrographic surgery for skin cancer Geovanna Mendoza MD [address] [place] [address] [facility] [address] [address] Referral ID Status Reason Start Date Expiration Date Visits Requested Visits Authorized [id number] In Process Specialty Services Required 3 01/11/2024 99 99 Scheduling Instructions Referral to: Non- Medicine Dermatology: [place]: [facility] [place] (POS [id number]) [phone] ----Please be aware that while I, as your health care provider, have identified this referral as medically indicated, I cannot guarantee your insurance plan will cover it. I recommend you contact your insurance carrier to make sure this is a covered service they will pay for. * Specialty Visit (Routine) - In Process Specialty Diagnoses / Procedures Referred By Contac t Referred To Contact Diagnoses Bilateral leg pain Spinal stenosis of lumbar region without neurogenic claudication Acute left ankle pain Limp Bilateral hip pain DDD (degenerative disc disease), lumbar Osteoarthritis of spine with radiculopathy, lumbar region Geovanna Mendoza MD [address] [place] [address] [facility] [address] [place] [address] Referral ID Status Reason Start Date Expiration Date Visits Requested Visits Authorized [id number] In Process Specialty Services Required 3 01/11/2024 99 99 Scheduling Instructions Referral to: [facility] (POS [id number]) [phone] Please be aware that while I, as your health care provider, have identified this referral as medically indicated, I cannot guarantee your insurance plan will cover it. I recommend you contact your insurance carrier to make sure this is a covered service they will pay for. * Physical/ Occ/ Speech Therapy (Routine) - In Process Specialty Diagnoses / Procedures Referred By Contlesley t Referred To Contact Diagnoses Spinal stenosis of lumbar region without neurogenic claudication Acute left ankle pain Limp Pain of left lower extremity Geovanna Mendoza MD [address] [place] [address] [facility] [address] [place] [address] Referral ID Status Reason Start Date Expiration Date Visits Requested Visits Authorized [id number] In Process Specialty Services Required 3 01/11/2024 24 24 Scheduling Instructions Referral to: [facility] (POS [id number]) [phone] Please be aware that while I, as your health care provider, have identified this referral as medically indicated, I cannot guarantee your insurance plan will cover it. I recommend you contact your insurance carrier to make sure this is a covered service they will pay for. Reason for Visit * Reason Comments Wellness Medicare Annual Well ness visit Medication Management Encounter Details Date Type Department Care Team Description 01/11/2023 Office Visit Medicine Primary Care [facility] at [place] [address] [place] [address] Geovanna Mendoza MD [address] [place] [address] Dx: Encounter for Medicare annual wellness exam (Primary Dx) Allergies Active Allergy Reactions Severity Noted Date Comments Celecoxib Skin: Rash High 08/09/2021 Penicillin V Skin: Rash High 08/09/2021 Sulfa Antibiotics Other High 08/09/2021 Periorbital eye swelling documented as of this encounter (statuses as of 01/15/2023) Medications Medication Sig Dispensed Refills Start Date End Date Status famotidine 40 MG tablet Take 1 tablet (40 mg) by mouth daily. 0 06/07/2021 Active gabapentin 100 MG capsuleIndications: Neuropathy Take 200 mg each morning and 300 mg each night. 450 capsule 1 08/14/2021 Active Additional Information Patient taking differently: 300 mg Nightly, Takes 300 mg each night., Reason: Other, Informant: Patient Reported, Reported on 01/11/2023 estradiol 0.1 MG/GM vaginal creamIndications:Va ginal atrophy Place 1 g into the vagina 2 times a week. 42.5 g 3 08/21/2021 Active cholecalciferol 25 mcg (1,000 unit) tablet Take 1 tablet (1,000 units) by mouth. 0 Active ibuprofen 400 MG tablet TAKE ONE(1) TABLET BY MOUTH EVERY FOUR(4) TO SIX(6) HOURS NEEDED FOR pain 0 2022 Active lactobacillus rhamnosus GG (Culturelle) capsule Take 1 capsule by mouth daily. 0 Active levothyroxine 88 MCG tabletIndications:H istory of thyroid nodule,Thyroid disease Take 1 tablet (88 mcg) by mouth daily on an empty stomach. 90 tablet 3 08/23/2022 Active denosumab (Prolia) 60 MG/ML prefilled syringeIndications: Age-related osteoporosis without current pathological fracture Inject 1 mL (60 mg) under the skin every 6 months. 1 mL 11 10/15/2022 04/13/19 Active rosuvastatin 20 MG tabletIndications:M ixed hyperlipidemia TAKE ONE(1) TABLET BY MOUTH ONCE DAILY AT BEDTIME 90 tablet 0 12/20/2022 Active predniSONE 20 MG tabletIndications:B ilateral leg pain,Spinal stenosis of lumbar region without neurogenic claudication,Limp,B ilateral hip pain,DDD (degenerative disc disease), lumbar,Osteoarthrit is of spine with radiculopathy, lumbar region Take 2 tablets (40 mg) by mouth daily for 5 days. Take with food. 10 tablet 0 01/11/2023 01/17/20 Active denosumab (Prolia) 60 MG/ML prefilled syringe Inject 1 mL (60 mg) under the skin every 6 months. 0 01/12/20 Discontinu ed(Med list cleanup) hyoscyamine 0.125 MG SL tabletIndications:I rritable bowel syndrome with constipation Place 1 tablet (0.125 mg) under the tongue every 4 hours as needed (IBS symptoms). 30 tablet 2 02/26/2022 01/12/20 Discontinu ed(Therapy completed/ no longer indicated) documented as of this encounter (statuses as of 01/15/2023) Active Problems Problem Noted Date Irritable bowel syndrome with both const ipation and diarrhea 07/01/2022 Spinal stenosis of lumbar region without neurogenic claudication 02/23/2022 Age related osteoporosis 09/19/2021 Thyroid disease Lipidemia Osteoporosis Arthritis documented as of this encounter (statuses as of 01/15/2023) Resolved Problems Problem Noted Date Resolved Date Asthma 02/23/2022 documented as of this encounter (statuses as of 01/15/2023) Immunizations Name Administration Dates Next Due COVID-19 Soundrop mRNA monoval ent 12 yrs and older (purple cap) 07/28/2021,01/23/2021,05/11/2020,04/20 COVID-19 Soundrop mRNA monoval ent betito-sucrose 12 yrs and older (nunn cap) 08/30/2021 Influenza quadrivalent MDCK (Flucelvax) 03/25/2000 Influenza quadrivalent PF 12/14/2020 Influenza quadrivalent adjuv anted (Fluad) 12/13/2022,12/20/2021 Influenza quadrivalent high-dose 12/25/2019 Influenza trivalent high-dose 02/23/2019 Influenza, unspecified 12/20/2021,12/24/2016,03/2015 Pneumococcal conjugate PCV13 (Prevnar 13) 04/25/2017 Pneumococcal polysaccharide PPSV23 (Pneumovax 23) 12/22/2018 Tdap 12/13/2016 Zoster live (Zostavax) 12/13/2013 Zoster recombinant (Shingrix) 06/17/2020 documented as of this encounter Social History Tobacco Use Types Packs/Day Years Used Date Smoking Tobacco: Never Smokeless Tobacco: Never Alcohol Use Standard Drinks/Week Comments Yes 4 (1 standard drink = 0.6 oz pur e alcohol) Education Answer Date Recorded What is the highest level of school you have completed or the highest degree you have received? Bachelor's degree (e.g., BA, AB, BS) 10/16/2021 Sex Assigned at Date Recorded Not on file documented as of this encounter Last Filed Vital Signs Vital Sign Reading Time Taken Comments Blood Pressure 124/78 01/11/2023 12:43 PM PDT Pulse 83 01/11/2023 12:43 PM PDT Temperature 37 ??C (98.6 ??F) 01/11/2023 12:43 PM PDT Respiratory Rate 16 01/11/2023 12:43 PM PDT Oxygen Saturation 98% 01/11/2023 12:43 PM PDT Inhaled Oxygen Concentration - - Weight 53.1 kg (117 lb) 01/11/2023 12:43 PM PDT Height 159.4 cm (5' 2.75) 01/11/2023 12:43 PM P DT Body Mass Index 20.89 01/11/2023 12:43 PM PDT documented in this encounter Progress Notes * Bessie Cary MA - 01/11/2023 12:30 PM PDT MEDICARE PREVENTIVE VISIT - [place] Rooming Guide Rooming Activities: Vitals (Select all that apply): [x] Height (required for Welcome to Medicare and Medicare First Annual Wellness; ideal for all visits) [x] Weight (or waist circumference) (required for all Medicare Preventive Visits) [x] Blood pressure (required for all Medicare Preventive Visits) [] Visual acuity (with correction if applicable); document in Hearing/Vision section of Rooming (required for Welcome to Medicare Initial Preventive Physical Exam) [place] Risk Assessment (HRA) (required for all AWV visits) was completed (check one): [x] Prior to visit as MyChart patient-entered questionnaire [] Prior to visit on paper HRA form (reminder: scan form to Media) [] During visit as patient-entered questionnaire Social History review & update (required) was completed (check all that apply): [x] in Patient-Entered History via [employer] [] on paper HRA and entered or updated by [facility] in Social History section [] in direct review of Social History section with patient or financial legal assistant at visit Depression screening (required) (check all that apply): [x] PHQ-2 responses entered into Screening section [] PHQ-9 given and responses enteredAnswers submitted by the patient for this visit: Health Screening: Depression (Submitted on 01/10/2023) PHQ2 Score: 0 * Geovanna Mendoza MD - 01/11/2023 12:30 PM PDT ANNUAL WELLNESS VISIT Nanda Best is a 72 year old female who presents for a subsequent Annual Wellness Visit. Is this a Telemedicine or a Phone visit? No INFORMATION GATHERING: The following areas were confirmed with patient/caregiver and/or updated in Epic at this visit: Past Medical, Surgical, Family, and Social History Current medications and supplements Allergies All of the above components have been reviewed and updated: yes Opioid Use: Patient not taking opioids I have reviewed the patient's risk factors for other substance use disorders. If appropriate, I've referred the patient for treatment. Please see today's HRA for review of patient's functional ability and level of safety. Concerns areaddressed below in the Personalized Prevention Plan section. For list of current providers and suppliers, see Care Team Section, EHR encounters, and/or HRA questionnaire for Medicine providers involved in care Other providers and suppliers outside Medicine: Identified outside providers not included in records above (please specify): See care team Depression screening: PHQ-2: 0 PHQ-9 (if done): EXAM: BP 124/78 Pulse 83 Temp 37 ??C (Temporal) Resp 16 Ht 5' 2.75 (1.594 m) Wt 53.1 kg (117 lb) SpO2 98% BMI 20.89 kg/m?? GAIT: Abnormal, other (describe): antalgic gait COGNITION: Intact ADVANCE CARE PLANNING (ACP) Advance care planning: On her chart already ASSESSMENT: Nanda Best was seen for her Annual Wellness Visit, including identification of risk factors& conditions that may affect her health and function in the future. Nanda was seen today for wellness and medication management. Encounter for Medicare annual wellness exam Actions at this visit: Established or updated a written schedule of screening and prevention measures recommended and appropriate for Nanda Best for the next 5-10 years Established or updated a list of her risk factors and conditions for which lifestyle or medical interventions are recommended or underway, including mental health risks and conditions, and including risks/benefits of treatment Furnished personalized health advice and, as appropriate, referrals to health education or preventive counseling services or programs (such as fall prevention, tobacco cessation, physical activity, nutrition, cognition, weight loss) All of the above components have been reviewed and updated. yes Personalized Prevention Plan: Based on today's evaluation, I recommend the following ways to improve your health or functioning. You have the following risk factors and/or medical conditions for which there are recommended ways (included in this list) to help you stay as healthy as possible: What is Life???s Simple 7? Life's Simple 7 is defined by the [employer] as the 7 risk factors that people can improve through lifestyle changes to help achieve ideal cardiovascular health. Manage Blood Pressure High blood pressure is a major risk factor for heart disease and stroke. When your blood pressure stays within healthy ranges, you reduce the strain on your heart, arteries, and kidneys which keeps you healthier longer. Control Cholesterol High cholesterol contributes to plaque, which can clog arteries and lead to heart disease and stroke. When you control your cholesterol, you are giving your arteries their best chance to remain clearof blockages. Reduce Blood Sugar Most of the food we eat is turned into glucose (or blood sugar) that our bodies use for energy. Over time, high levels of blood sugar can damage your heart, kidneys, eyes and nerves. Get Active Living an active life is one of the most rewarding gifts you can give yourself and those you love. Simply put, daily physical activity increases your length and quality of life. Eat Better A healthy diet is one of your best weapons for fighting cardiovascular disease. When you eat a heart-healthy diet, you improve your chances for feeling good and staying healthy - for life! Lose Weight When you shed extra fat and unnecessary pounds, you reduce the burden on your heart, lungs, blood vessels and skeleton. You give yourself the gift of active living, you lower your blood pressure and you help yourself feel better, too. Stop Smoking Cigarette smokers have a higher risk of developing cardiovascular disease. If you smoke, quitting is the best thing you can do for your health. These measures have one unique thing in common: any person can make these changes, the steps are not expensive to take and even modest improvements to your health will make a big difference. Start with one or two. This simple, seven step list has been developed to deliver on the hope we all have--to live a long, productive healthy life. Here are screening & prevention measures recommended for you: Health Maintenance Topic Date Due Osteoporosis Screening Never done Zoster Vaccine (3 of 3) 08/12/2020 COVID-19 Vaccine (2022- season) 2022 Influenza Vaccine (1) 12/23/2022 Depression Screening (PHQ-2) 01/11/2024 Medicare Annual Wellness Visit 01/12/2024 Breast Cancer Screening 10/29/2024 Lipid Disorders Screening 08/09/2026 DTaP, Tdap and Td Vaccines (2 - Td or Tdap) 12/13/2026 Colorectal Cancer Screening 01/23/2031 Pneumococcal Vaccine: 65+ years Completed Hepatitis C Screening Completed Hepatitis A Vaccine Aged Out Hepatitis B Vaccine Aged Out Please plan to have a Subsequent Annual Wellness Visit in 1 year. Answers submitted by the patient for this visit: Health Screening: Depression (Submitted on 01/10/2023) PHQ2 Score: 0 CPE: S: She also would like a referral to PT for her worsening LLExt (leg and knee and L ankle) pain. She has read some news about the dangers of gabapentin. She decreased her dose 300 mg once a day and her pain has gotten worse but does not feel so out of it. Her parents had dementia. And has read gabapentin is not recommended in setting of dementia. She is not sure if the gabapentin is even helping. Takes it only at night. Allergy to Celebrex. Meloxicam helped but after a while upset her stomach. Chronic LBP with spinal stenosis and DDD/DJD. Some radiculopathy.Has had epidurals in the past, hadone with Dr Sung. It did not work as well as when she would get them in [place]. Has worsening LAN hip pain and NKI but now limping. No foot drop. O: BP 124/78 Pulse 83 Temp 37 ??C (Temporal) Resp 16 Ht 5' 2.75 (1.594 m) Wt 53.1 kg (117 lb) SpO2 98% BMI 20.89 kg/m?? GENERAL: WDWN female, alert, cooperative, interactive EYES: anicteric, noninjected, PERRLA, EOMI EARS: Canals clear, TM's nunn VISION and HEARING: Normal. NOSE: nasal passages clear NECK: supple, no masses, no lymphadenopathy RESP: clear to auscultation bilaterally Breast exam: Deferred CV: RRR, normal S1/S2, no murmurs, clicks, or rubs. ABD: soft, nontender, no masses, no hepatosplenomegaly : deferred MS: spine straight, FROM all joints, [employer] Lext edema Neuro: grossly intact SKIN: nl turgor, no rashes or lesions A/P: 1. Encounter for Medicare annual wellness exam Healthy, routine schedule. 2. Encounter for annual physical exam 2. Bilateral leg pain - predniSONE 20 MG tablet; Take 2 tablets (40 mg) by mouth daily for 5 days. Take with food. Dispense: 10 tablet; Refill: 0 - Referral to Pain Relief Clinic; Future 3. Spinal stenosis of lumbar region without neurogenic claudication - Referral to Physical Therapy - Ortho/Sports/Musculoskeletal; Future - predniSONE 20 MG tablet; Take 2 tablets (40 mg) by mouth daily for 5 days. Take with food. Dispense: 10 tablet; Refill: 0 - Referral to [facility] Relief Clinic; Future 4. Acute left ankle pain - Referral to Physical Therapy - Ortho/Sports/Musculoskeletal; Future - Referral to [facility]; Future 5. Limp - Referral to Physical Therapy - Ortho/Sports/Musculoskeletal; Future - predniSONE 20 MG tablet; Take 2 tablets (40 mg) by mouth daily for 5 days. Take with food. Dispense: 10 tablet; Refill: 0 - Referral to [facility] Relief Clinic; Future 6. Pain of left lower extremity - Referral to Physical Therapy - Ortho/Sports/Musculoskeletal; Future 7. Bilateral hip pain - predniSONE 20 MG tablet; Take 2 tablets (40 mg) by mouth daily for 5 days. Take with food. Dispense: 10 tablet; Refill: 0 - Referral to Pain Relief Clinic; Future 8. DDD (degenerative disc disease), lumbar - predniSONE 20 MG tablet; Take 2 tablets (40 mg) by mouth daily for 5 days. Take with food. Dispense: 10 tablet; Refill: 0 - Referral to Pain Relief Clinic; Future 9. Osteoarthritis of spine with radiculopathy, lumbar region - predniSONE 20 MG tablet; Take 2 tablets (40 mg) by mouth daily for 5 days. Take with food. Dispense: 10 tablet; Refill: 0 - Referral to Pain Relief Clinic; Future 10. History of basal cell carcinoma (BCC) - Referral to Dermatology; Future 11. History of Mohs micrographic surgery for skin cancer - Referral to Dermatology; Future documented in this encounter Plan of Treatment Scheduled Referrals Name Type Priority Associated Diagnoses Orde r Schedule Referral to Physical Therapy - Ortho/Sports/Musculoske letal Referral Routine Spinal stenosis of lumbar region without neurogenic claudication Acute left ankle pain Limp Pain of left lower extremity Expected: 01/11/2023, Expires: 01/12/2024 Referral to [facility] Referral Routine Bilateral leg pain Spinal stenosis of lumbar region without neurogenic claudication Acute left ankle pain Limp Bilateral hip pain DDD (degenerative disc disease), lumbar Osteoarthritis of spine with radiculopathy, lumbar region Expected: 01/11/2023, Expires: 01/12/2024 Referral to Dermatology Referral Routine History of basal cell carcinoma (BCC) History of Mohs micrographic surgery for skin cancer Expected: 01/11/2023, Expires: 01/12/2024 documented as of this encounter Visit Diagnoses Diagnosis Encounter for Medicare annual wellness exam- Primary Routine general medical examination at a health care facility Encounter for annual physical exam Bilateral leg pain Pain in limb Spinal stenosis of lumbar region without neurogenic claudication Spinal stenosis, lumbar region, without neurogenic claudication Acute left ankle pain Limp Abnormality of gait Pain of left lower extremity Bilateral hip pain Pain in joint, pelvic region and thigh DDD (degenerative disc disease), lumbar Degeneration of lumbar or lumbosacral intervertebral disc Osteoarthritis of spine with radiculopathy, lumbar region History of basal cell carcinoma (BCC) History of Mohs micrographic surgery for skin cancer documented in this encounter Advance Directives For more information, please contact: [phone] Documents on File Type Date Recorded Patient Veterinarian Assistant Expl anation POLST 10/16/2021 2:00 PM Care Teams Director Digital Communications Relationship Specialty Start Date End Date Geovanna Mendoza MD [address] [place] [address] [phone] PCP - General Family Practice 02/23/22 José Toney MD [facility] [address] [place] [phone] Orthopedics/Sports Medicine Orthopedic Surgery 04/02/22 documented as of this encounter
== END ==
PROVIDERS: PCP Family Medicine; Referring Provider Family Medicine; Visit Provider Family Medicine
DX: R92.8 Other abnormal and inconclusive findings on diagnostic imaging of breast (principal)
CPT/HCPCS: 77065; G0279

== ENCOUNTER → 2023-03-12 12:26 | Outpatient (CLI) | payer MEDICARE, OTHER, SELFPAY ==
[2022-04-25 14:51] VITALS: BMI 22.1
--- NOTE | 2023-03-12 12:28 | DI.RAD.S_ITS ---
PROCEDURE: XR LUMBAR SPINE MIN 4V INDICATIONS: low back pain TECHNIQUE: 5 views of the lumbar spine were acquired, including bilateral oblique views. COMPARISON: [facility], MR, MR LUMBAR SPINE WO CON, 01/04/2022, 12:59. FINDINGS: Bones: 5 nonrib-bearing vertebrae are present. Grade 1 anterolisthesis measuring 10 mm of L4-5. Disc space narrowing of L4-5. 4 mm retrolisthesis of L1-2. The sacroiliac joints have mild degenerative changes. There is a calcification in the central pelvis superimposed above the pubic symphysis, probably an ovarian calcified fibroid. There is normal bony alignment. No vertebral body compression fractures. No suspicious bony lesions. Soft tissues: Overlying bowel gas pattern is normal. No suspicious soft tissue calcifications. Oblique images: No pars defects. IMPRESSION: 1. Degenerative disc disease at L4-5 with disc space narrowing and 10 mm anterolisthesis. 2. 4 mm retrolisthesis of L1-2. 3. Degenerative changes of the sacroiliac joints. 4. Calcification in the pelvis likely a calcified ovarian fibroid. Dictated by: Jose Edwards M.D. on 03/12/2023 at 15:20 Approved by: Joes Edwards M.D. on 03/12/2023 at 15:23
== END ==
PROVIDERS: PCP Family Medicine; Referring Provider Anesthesiology; Visit Provider Anesthesiology
DX: M51.16 Intervertebral disc disorders with radiculopathy, lumbar region (principal); M47.28 Other spondylosis with radiculopathy, sacral and sacrococcygeal region; M43.16 Spondylolisthesis, lumbar region; M48.061 Spinal stenosis, lumbar region without neurogenic claudication; M54.9 Dorsalgia, unspecified
CPT/HCPCS: 72110; 99214

== ENCOUNTER 2023-05-15 11:41 | Outpatient (CLI) | payer MEDICARE, OTHER, SELFPAY ==
[2022-04-25 14:51] VITALS: BMI 22.1
[2023-05-15] VITALS (8 sets, daily range): BP systolic 112–148; BP diastolic 77–84; PULSE 71–86; RESP 12–20; TEMP 36.2; O2SAT 98–99
--- NOTE | 2023-05-15 11:42 | DI.RAD.S_ITS ---
PROCEDURE: XR HIP W PEL IF DONE RT 2V INDICATIONS: RIGHT HIP PAIN TECHNIQUE: AP pelvis with lateral view(s) of the right hip(s). COMPARISON: None. FINDINGS: Bones: No fractures or dislocations. Ihep-fu-cjktygjk degenerative changes of the bilateral hips. There is joint space narrowing and marginal spurring. Pelvic ring appears intact. No suspicious bony lesions. Soft tissues: The visualized bowel gas pattern is normal. No suspicious soft tissue calcifications. Calcifications projecting over the pelvis, most consistent with a degenerated fibroids. IMPRESSION: No acute osseous abnormalities. Mild to moderate degenerative changes of the bilateral hips. Dictated by: Nahid Price M.D. on 05/15/2023 at 14:24 Approved by: Nahid Price M.D. on 05/15/2023 at 14:25
[2023-05-15] MEDS: MIDAZOLAM 2 MG/2 ML VIAL IV (13:30)
--- NOTE | 2023-05-15 13:30 | DI.RAD.S_ITS ---
PROCEDURE: PAIN L/S TRANSFORAM INJECT LAN COMPARISON: [facility], , PAIN L/S TRANSFORAM INJECT LAN, 01/16/2022, 14:17. INDICATIONS: RADICULOPATHY FINDINGS: Intra procedural examination demonstrating appropriate positions of the needles at the bilateral L4-5 location for transforaminal epidural steroid injection. IMPRESSION: Intra procedural examination demonstrating appropriate positions of the needles. Dictated by: Nahid Price M.D. on 05/15/2023 at 14:52 Approved by: Nahid Price M.D. on 05/15/2023 at 14:52
[2023-05-15] MEDS: iopamidoL 15 ML VIAL 3 ML INJ (13:33)
[2023-05-15] MEDS: DEXAMETHASONE 10 MG/ML VIAL 20 MG INJ (13:34)
--- NOTE | 2023-05-15 15:06 | P.PCN_ITS ---
Date/Time/Diagnoses Date of procedure: 05/15/23 Time of procedure: 13:30 Procedure Notes Physician: Tin Brady Total Fluoroscopy time (seconds): 45 Total sedation minutes: 15 Procedure in detail & Post-procedure care: Bilateral L4-5 Transforaminal Epidural Steroid Injection Indications: Nanda is presenting for treatment of lumbar radiculopathy with low back and leg pain. Preoperative diagnosis: Lumbar radiculopathy Postoperative diagnosis: Same Focused Examination: Ax3 Mood and affect are normal Vital Signs: VSS ASA: 2 Consent: Following review of allergies and potential side effects/complications, including, but not necessarily limited to, infection, allergic reaction, local tissue breakdown, stroke, temporary or permanent nerve injury, paralysis, and possible , the patient indicated that they understood and agreed to proceed.? An informed consent document was signed by the patient, witnessed by a nurse and placed in the patient's chart.? Additionally, other treatment options including medications and physical therapy were reviewed with the patient. All questions were answered. Site was then marked. Anesthesia: After review of previous anesthetic history and IV conscious milton tion, the patient was deemed safe to proceed with today's procedure with IV conscious sedation. IV sedation was accomplished with midazolam 2 mg administered by the RN after order by Dr. Brady. Sedation was titrated to patient comfort during the course of the procedure. Patient remained responsive to all verbal commands. Position: Prone Monitoring: NIBP, Pulse oximetry, 3 lead EKG Needle used: 22G 3.5 inch spinal needle Contrast: Isovue 300M Injectate: 10 mg Dexamethasone mixed with 1% lidocaine 1 ml and normal saline 1 mL Technique: The skin was prepped with chloraprep and draped in a sterile fashion. Time out was performed as per protocol. Oxygen applied via NC. Skin and subcutaneous structures of the needle entry site were infiltrated with 3mL of lidocaine 1%. Under fluoroscopic guidance, using an ipsilateral oblique view,?a 22 gauge 3.5 inch needle was advanced to the base of the right L4?pedicle.? The needle was advanced to the superio-posterior aspect of the neural foramen under lateral view.? Oblique and AP views were rechecked. No paresthesias noted by the patient during needle placement. In AP view and utilizing real-time digital subtraction fluoroscopy, 2 ml contrast was slowly injected. Epidural spread was observed without evidence for intravascular nor intrathecal uptake. Contrast spread was seen craniocaudally. The above injectate was then administered without paresthesias and the needle was subsequently withdrawn. The above procedure was then repeated for the left L4-5. Band-Aids applied to injection sites. EBL: less than 1 ml Complications: None Post Procedure: Patient was taken to the recovery and monitored. The patient was provided a Pain Log to continue to record the patient's response to the target- specific procedure prior to the patient's follow-up visit with the referring physician. Patient was stable upon discharge. Detailed post procedure instructions were provided. Patient was asked to call in the event of worsening pain, fever, weakness, numbness or bladder or bowel incontinence.
== END 2023-05-15 14:17 | disposition home or self-care (01) ==
LOC: RAD 11:42
PROVIDERS: PCP Family Medicine; Referring Provider Anesthesiology; Visit Provider Anesthesiology
DX: M54.16 Radiculopathy, lumbar region (principal); M25.551 Pain in right hip
CPT/HCPCS: 64483; 73502; 99152; J1100; J2250

== ENCOUNTER → 2023-12-13 14:01 | Outpatient (CLI) | payer MEDICARE, OTHER, SELFPAY ==
[2022-04-25 14:51] VITALS: BMI 22.1
--- NOTE | 2023-12-13 14:03 | DI.MG.S_ITS ---
BILATERAL DIGITAL SCREENING MAMMOGRAM 3D/2D WITH CAD: 12/13/2023 CLINICAL: Routine screening. Family history of breast cancer. Comparison is made to exams dated: 11/06/2022 mammogram, 10/27/2022 mammogram, 10/13/2021 mammogram - [facility], and 11/25/2020 mammogram - Outside facility. The breasts are heterogeneously dense, which may obscure small masses (category c / 51-75% glandular tissue). Current study was also evaluated with a Computer Aided Detection (CAD) system. There are benign vascular calcifications in the right breast. No significant masses, calcifications, or other findings are seen in either breast. There has been no significant interval change. IMPRESSION: BENIGN There is no mammographic evidence of malignancy. A 1 year screening mammogram is recommended. Based on the Tyrer Cuzick model (a risk assessment model) the patient's lifetime risk is 6.8% and her 10 year risk is 4.6%. According to the ACR, ACS, and NCCN guidelines, an annual breast MRI exam along with mammogram is recommended if the patient's lifetime risk is 20% or greater. This exam was interpreted at Station ID: [id number]. NOTE: For mammograms, a report in lay terms will be sent to the patient. Approximately 15% of breast malignancies will not be visualized mammographically. In the management of a palpable breast mass, a negative mammogram must not discourage biopsy of a clinically suspicious lesion. Electronically Signed By: Chapito wilson/[email or web address]:12/13/2023 15:24:07 letter sent: Normal Exam ACR BI-RADS Category 2: Benign
== END ==
PROVIDERS: PCP Family Medicine; Referring Provider Family Medicine; Visit Provider Family Medicine
DX: Z12.31 Encounter for screening mammogram for malignant neoplasm of breast (principal); Z80.3 Family history of malignant neoplasm of breast; R92.333 Mammographic heterogeneous density, bilateral breasts
CPT/HCPCS: 77063; 77067

== ENCOUNTER → 2024-06-11 12:16 | Outpatient (CLI) | payer MEDICARE, OTHER, SELFPAY ==
[2022-04-25 14:51] VITALS: BMI 22.1
--- NOTE | 2024-06-11 12:17 | DI.RAD.S_ITS ---
PROCEDURE: XR DEXA AXIAL SKELETON INDICATIONS: SCREENING FOR OSTEOPOROSIS COMPARISON: [facility], [place], XR DEXA AXIAL SKELETON, 04/25/2022, 9:39. FINDINGS: Lumbar Spine: Bone mineral density 0.913 g/cm2, T score -1.2, compared to -1.5. Left Femoral Neck: Bone mineral density 0.726 g/cm2, T score -1.1, -1.2. Left Hip: Bone mineral density 0.829 g/cm2, T score -0.9, compared to -0.1 Fracture Risk Calculation (when applicable): 10-year fracture risk of a major osteoporotic fracture 8.4 percent and of a hip fracture 1.2 percent. (T score greater or equal to -1.0 to: NORMAL) (T score from -1.1 to -2.4: OSTEOPENIA) (T score less than or equal to -2.5: OSTEOPOROSIS) IMPRESSION: Minimal osteopenia with improved bone mineral density. Follow-up guidelines as follows: Osteoporosis: Consider a repeat DEXA and Vertebral Fracture Assessment (VFA) exam in 2 years or sooner if medically necessary, to reassess this patient's status. Osteopenia: Consider a repeat DEXA in 2-3 years to reassess this patient's status, or if there is a new clinical indication. Normal: Consider a repeat DEXA in 5 years or sooner, or if there is a new clinical indication. All treatment decisions require clinical judgment and consideration of individual patient factors, including patient preferences, comorbidities, previous drug use, risk factors not captured in the FRAX model (e.g., frailty, falls, vitamin D deficiency, increased bone turnover, interval significant decline in bone density ) and possible under- or over-estimation of fracture risk by FRAX. In addition, the NOF Guide recommends that FDA-approved medical therapies be considered in postmenopausal women and men age >= 50 years with a: * Hip or vertebral (clinical or morphometric) fracture * T-score of <=-2.5 at the spine or hip * Ten-year fracture probability by FRAX of >= 3% for hip fracture or >=20% for major osteoporotic fracture. Dictated by: Soraya Alanis M.D. on 06/11/2024 at 13:01 Approved by: Soraya Alanis M.D. on 06/11/2024 at 13:03
== END ==
PROVIDERS: PCP Family Medicine; Referring Provider Physician Assistant; Visit Provider Physician Assistant
DX: M81.0 Age-related osteoporosis without current pathological fracture (principal)
CPT/HCPCS: 77080